=== PATIENT | female | born 1975 | race American Indian/Alaskan Native ===

== ENCOUNTER 2018-02-27 22:05 | Emergency (ER) | payer OTHER, SELFPAY ==
--- NOTE | 2018-02-27 22:10 | ED.ARRPALP ---
HPI - Arrhythmia/Palpitations General Chief Complaint: Arrhythmia/Palpitations Stated Complaint: STATES SVT Time Seen by Provider: 02/27/18 22:09 Source: patient Mode of arrival: ambulatory Limitations: no limitations History of Present Illness HPI narrative: 42-year-old female with history of SVT and pulmonary hypertension presents to the emergency department with a chief complaint of 45 min of rapid heart rate home with dizziness and lightheadedness. She has a long history of SVT and attempted multiple Valsalva maneuvers at home. Her symptoms persisted through her registration process and by the time she entered the emergency department her rate was normal and her symptoms had ceased. She does state that she drank a very strong quad coffee this afternoon which is atypical for her, stating she knows better MD complaint: rapid heart beat and heart racing Onset (ago): minute(s) Duration: now resolved Severity: mild Context: occurred during rest Arrhythmia history: SVT Associated symptoms: shortness of breath, anxiety and paresthesias Treatments prior to arrival: vagal maneuvers Related Data Home Medications Medication Instructions Recorded Confirmed OMEPRAZOLE 20 mg PO QDAY #0 04/30/13 FERROUS SULFATE 324 mg OR BID #0 05/01/16 VITAMIN D (Vitamin D3) 1,000 units OR Q DAY #0 05/01/16 ambrisentan [Letairis] 10 mg OR Q DAY #0 05/01/16 hydrochlorothiazide 25 mg OR Q DAY #0 05/01/16 minocycline 100 mg PO BID #0 cap 05/01/16 pregabalin [Lyrica] 150 mg PO BID #0 cap 05/01/16 tadalafil (antihypertensive) 40 mg OR Q DAY #0 05/01/16 [Adcirca] trazodone 100 mg OR HS #0 05/01/16 Previous Rx's Medication Instructions Recorded hydrocodone-acetaminophen [Elmira] 1 tab PO QID PRN #10 tab 01/28/17 ibuprofen 800 mg PO Q8HP PRN #30 tab 01/28/17 Allergies Allergy/AdvReac Type Severity Reaction Status Date / Time lisinopril Allergy Unknown Verified 02/27/18 22:13 sulfamethoxazole Allergy Unknown Verified 02/27/18 22:13 [From Bactrim] trimethoprim [From Bactrim] Allergy Unknown Verified 02/27/18 22:13 Review of Systems Review of Systems All systems reviewed & are unremarkable except as noted in HPI and below Constitutional Denies chills, Denies fever(s), Denies lethargy and Denies weakness Eyes Denies change in vision, Denies eye discharge, Denies irritation and Denies loss of vision ENT Ears, Nose, Mouth, and Throat: Denies change in voice, Denies neck pain and Denies sore throat Cardiovascular Denies chest pain, Reports rapid heart rate, Denies irregular heart rhythm, Denies lightheadedness, Denies palpitations, Denies dyspnea, Denies dyspnea on exertion and Denies orthopnea Respiratory Denies cough, Denies dyspnea, Denies dyspnea on exertion and Denies wheezing Gastrointestinal Gastrointestinal: Denies abdominal pain, Denies change in bowel habits, Denies diarrhea, Denies nausea and Denies vomiting Genitourinary Denies hematuria, Denies flank pain, Denies urinary incontinence and Denies urinary urgency Musculoskeletal Denies neck pain Integumentary/Breasts Denies pruritus, Denies erythema, Denies rash and Denies wounds Neurologic Denies confusion, Denies loss of vision and Denies weakness Psychiatric Denies anxiety, Denies confusion, Denies depression, Denies homicidal ideation and Denies suicidal ideation Endocrine Denies palpitations Hematologic/Lymphatic Denies easy bruising Allergic/Immunologic Denies wheezing PFSH Surgical History History of third molar tooth extraction History of tonsillectomy Status post tubal ligation Social History Smoking Status: Smoker, status unknown Exam Narrative Exam Narrative: Pleasant 42-year-old female resting comfortably. In no obvious distress Initial Vital Signs Initial Vital Signs: Vital Signs Temperature 97.7 F 02/27/18 22:13 Pulse Rate 81 02/27/18 22:13 Respiratory Rate 17 02/27/18 22:13 Blood Pressure 100/71 02/27/18 22:13 Pulse Oximetry 97 02/27/18 22:13 Const General: cooperative and well developed Nutritional Appearance: well nourished Orientation: alert, awake, oriented x3 and not confused [facility] Head: normocephalic and atraumatic Ears: external ears normal and TM's normal bilaterally Nose: external nose normal and No nasal discharge Face and sinus: sinuses nontender, face symmetric, no sinus tenderness and No dry mucous membranes Mouth: oral mucosae normal and moist mucous membranes Teeth and gingiva: dentition normal Throat: tonsils normal and uvula midline Eyes General: appearance normal, both eyes and all related structures Eyelids: eyelids normal Conjunctivae: conjunctivae normal Sclera: sclerae normal Pupils: PERRL EOM: EOM intact bilaterally Neck Neck: normal visual inspection, trachea midline, No lymphadenopathy, No midline deformity and No JVD Lymphatic: No lymphedema Chest Chest: normal inspection of the chest Resp Effort & Inspection: normal respiratory effort, able to speak in complete sentences, no respiratory distress and no use of accessory muscles Auscultation: clear to auscultation bilaterally, no rales, no rhonchi and no wheezes Cardio Rate: regular rate Rhythm: regular rhythm Heart Sounds: no click, no gallops, no murmurs and no rubs Pulses: normal peripheral pulses GI Inspection: non-distended Palpation: soft, no hepatosplenomegaly, No guarding, No pulsatile mass and No tender Auscultation: normal bowel sounds Back/Spine/Pelvis Back: No CVA tenderness Cervical Spine: cervical ROM normal and No pain with cervical ROM Thoracic/Lumbar Spine: thoracic and lumbar spine normal to inspection Skin General: no rashes or lesions noted, No jaundice and No petechiae Neuro General: alert, oriented x3, gait normal and no focal motor deficits Speech: speech normal Extrem General: full ROM, no clubbing, cyanosis or edema, no pedal edema and no calf tenderness Psych Appearance: well kempt Mental Status: mental status grossly normal Attitude: cooperative Thought Content: normal and suicidality Judgment: judgment good Course Orders Ordered: ED Orders 02/27/18 22:10 EKG-12 Lead Stat Reevaluation(s) Reevaluation #1: Patient has longstanding history of SVT and states today symptoms were very classic for her. She states she has a history of entering SVT when she has strong caffeinated beverages. She had resolved her rapid heart rate and all other symptoms prior to being evaluated. After discussion with this patient we elected to not draw labs or do other interventions at this time. She understands she can return to the emergency department immediately for any recurrence of symptoms Vital Signs - 8 hr 02/27/18 22:13 02/27/18 22:31 02/27/18 22:38 Temperature 97.7 F Pulse Rate 81 67 74 Respiratory Rate 17 16 18 Blood Pressure 100/71 106/57 L Blood Pressure [Left Arm] 106/57 L Pulse Oximetry 97 100 96 Discharge Plan Departure Patient Disposition: Home, Self-Care Clinical Impression: SVT (supraventricular tachycardia) Discharge Date/Time: 02/27/18 22:39 Interventions: ED Discharge Assessment Last Done: 02/27/18 22:38 Instructions: Paroxysmal Supraventricular Tachycardia Activity Restrictions/Additional Instructions: Avoid caffeine, nicotine and alcohol Return to the emergency department immediately for return of symptoms or additional symptoms such as chest pain, shortness of breath or dizziness Prescriptions: No Action OMEPRAZOLE 20 mg PO QDAY Qty: 0 RF: 0 tadalafil (antihypertensive) [Adcirca] 20 MG tablet 40 mg OR Q DAY Qty: 0 RF: 0 hydrochlorothiazide 25 MG tablet 25 mg OR Q DAY Qty: 0 RF: 0 trazodone 100 MG tablet 100 mg OR HS Qty: 0 RF: 0 FERROUS SULFATE 324 mg OR BID Qty: 0 RF: 0 ambrisentan [Letairis] 10 MG tablet 10 mg OR Q DAY Qty: 0 RF: 0 minocycline 100 MG capsule 100 mg PO BID Qty: 0 RF: 0 VITAMIN D (Vitamin D3) 1,000 units OR Q DAY Qty: 0 RF: 0 pregabalin [Lyrica] 75 MG capsule 150 mg PO BID Qty: 0 RF: 0 ibuprofen 800 MG tablet 800 mg PO Q8HP PRNQty: 30 RF: 0 hydrocodone-acetaminophen [Elmira] 5 MG/325 MG tablet 1 tab PO QID PRNQty: 10 RF: 0
[2018-02-27 22:13] VITALS: BP 100/71; PULSE 81; RESP 17; TEMP 36.5; O2SAT 97
[2018-02-27 22:31] VITALS: BP 106/57; PULSE 67; RESP 16; O2SAT 100
[2018-02-27 22:38] VITALS: BP 106/57; PULSE 74; RESP 18; O2SAT 96
== END 2018-02-27 22:39 | disposition home or self-care (01) ==
PROVIDERS: Emergency Provider Emergency Medicine; Family Provider Physician Assistant; PCP Physician Assistant
DX: I47.1 Supraventricular tachycardia (principal)
CPT/HCPCS: 93005; 93041; 99283

== ENCOUNTER 2018-06-19 22:13 | Emergency (ER) | payer OTHER, SELFPAY ==
[2018-06-19 22:15] VITALS: BP 134/76; PULSE 109; RESP 23; O2SAT 91; BMI 28.0
[2018-06-19 23:00] VITALS: BP 120/78; PULSE 106; RESP 24; O2SAT 93
[2018-06-19 23:02] LABS: Add Manual Diff / Slide Review NO; Basophils Percent Auto 0.6 % (0-2); Eosinophils Percent Auto 1.1 % (2-4); Hematocrit 40.6 % (36-46); Hemoglobin 13.9 g/dL (12.0-16.0); Lymphocytes Percent Auto 34.8 % (25-40); Mean Corpuscular HGB Conc 34.2 % (30-36); Mean Corpuscular Hemoglobin 29.6 PG (26-34); Mean Corpuscular Volume 86.5 fL (80-100); Monocytes Percent Auto 6.5 % (3-14); Neutrophils Absolute Auto 3800 /uL (3000-5900); Platelet Count 196 X10^3/uL (150-400); Red Blood Cell Count 4.69 X10^6/uL (4.0-5.2); Red Cell Distribution Width 15.5 % (11.6-14.8); White Blood Cell Count 6.7 X10^3/uL (4.5-11.0)
[2018-06-19 23:07] LABS: Alanine Aminotransferase 22 IU/L (9-52); Albumin 4.1 g/dL (3.5-5.0); Albumin Globulin Ratio 1.6 (1.0-2.8); Alkaline Phosphatase 45 U/L (38-126); Aspartate Aminotransferase 30 IU/L (14-36); Bilirubin Total 0.4 mg/dL (0.2-1.3); Blood Urea Nitrogen 15 mg/dL (7-17); Calcium 8.8 mg/dL (8.4-10.2); Carbon Dioxide 26 mmol/L (22-32); Chloride 102 mmol/L (98-107); Estimated Glomerular Filt Rate > 60.0 mL/min (>60); Ethanol (ETOH) 178 mg/dL; Globulin 2.6 g/dL (1.7-4.1); Glucose 149 mg/dL (70-100); HEMOLYSIS < 15 (0-50); Lipase 580 U/L (23-300); Magnesium 1.6 mg/dL (1.6-2.3); Potassium 3.7 mmol/L (3.4-5.1); Sodium 143 mmol/L (137-145); Total Protein 6.7 g/dL (6.3-8.2)
[2018-06-19] MEDS: THIAMINE 100 MG in DEXTROSE 5 % IN WATER 50 ML 204 ML IV (23:08)
[2018-06-19] MEDS: LORazepam 2 MG/ML SYRINGE 1 MG IV (23:08)
[2018-06-19] MEDS: SODIUM CHLORIDE 0.9% 1,000 ML 1000 ML IV (23:08)
--- NOTE | 2018-06-20 00:21 | ED_ITS ---
HPI - Arrhythmia/Palpitations General Chief Complaint: Arrhythmia/Palpitations Stated Complaint: SVT Time Seen by Provider: 06/19/18 22:18 Source: patient and family Mode of arrival: ambulatory Limitations: no limitations History of Present Illness HPI narrative: 42-year-old female with history of alcohol abuse and SVT presents with family members in the chief complaint of the sense that she soon ? drop in ?2 SVT. She denies chest pain, palpitations, dizziness or lightheadedness. She states she drinks about a pt a day and has been for the past 5 days and had been sober for approximately 5 months prior to that. She has been to medical detox facilities a few times and is requesting help with detox. She states she has never had seizures or any of the classic symptoms of delirium tremens such as tremors, confusion, hallucinations or other. She states she wants to stop drinking today MD complaint: rapid heart beat and heart racing Onset (ago): minute(s) Duration: now resolved Severity: mild Context: occurred during rest Arrhythmia history: SVT Associated symptoms: denies other symptoms Treatments prior to arrival: vagal maneuvers Related Data Home Medications Medication Instructions Recorded Confirmed OMEPRAZOLE 20 mg PO QDAY #0 04/30/13 04/06/18 FERROUS SULFATE 324 mg OR BID #0 05/01/16 04/06/18 VITAMIN D (Vitamin D3) 1,000 units OR Q DAY #0 05/01/16 04/06/18 ambrisentan [Letairis] 10 mg OR Q DAY #0 05/01/16 04/06/18 hydrochlorothiazide 25 mg OR Q DAY #0 05/01/16 04/06/18 minocycline 100 mg PO BID #0 cap 05/01/16 04/06/18 pregabalin [Lyrica] 150 mg PO BID #0 cap 05/01/16 04/06/18 tadalafil (antihypertensive) 40 mg OR Q DAY #0 05/01/16 04/06/18 [Adcirca] trazodone 100 mg OR HS #0 05/01/16 04/06/18 Previous Rx's Medication Instructions Recorded hydrocodone-acetaminophen [Birchleaf] 1 tab PO QID PRN #10 tab 01/28/17 ibuprofen 800 mg PO Q8HP PRN #30 tab 01/28/17 chlordiazepoxide HCl See Label Instructions .ROUTE 06/20/18 .COMPLEX #32 cap ondansetron [Zofran ODT] 8 mg PO Q8-12H PRN 4 Days tab 06/20/18 Allergies Allergy/AdvReac Type Severity Reaction Status Date / Time lisinopril Allergy Unknown Verified 06/19/18 22:15 sulfamethoxazole Allergy Unknown Verified 06/19/18 22:15 [From Bactrim] trimethoprim [From Bactrim] Allergy Unknown Verified 06/19/18 22:15 Review of Systems Review of Systems All systems reviewed & are unremarkable except as noted in HPI and below Constitutional Denies chills, Denies fever(s), Denies lethargy and Denies weakness Eyes Denies change in vision, Denies eye discharge, Denies irritation and Denies loss of vision ENT Ears, Nose, Mouth, and Throat: Denies change in voice, Denies neck pain and Denies sore throat Cardiovascular Denies chest pain, Denies irregular heart rhythm, Denies lightheadedness, Reports palpitations, Denies dyspnea, Denies dyspnea on exertion and Denies orthopnea Respiratory Denies cough, Denies dyspnea, Denies dyspnea on exertion and Denies wheezing Gastrointestinal Gastrointestinal: Denies abdominal pain, Denies change in bowel habits, Denies diarrhea, Denies nausea and Denies vomiting Genitourinary Denies hematuria, Denies flank pain, Denies urinary incontinence and Denies urinary urgency Musculoskeletal Denies neck pain Integumentary/Breasts Denies pruritus, Denies erythema, Denies rash and Denies wounds Neurologic Denies confusion, Denies loss of vision and Denies weakness Psychiatric Denies anxiety, Denies confusion, Denies depression, Denies homicidal ideation and Denies suicidal ideation Endocrine Reports palpitations Hematologic/Lymphatic Denies easy bruising Allergic/Immunologic Denies wheezing [facility] Surgical History History of third molar tooth extraction (Resolved) History of tonsillectomy (Resolved) Status post tubal ligation (Resolved 1998) Social History Smoking Status: Never smoker Exam Initial Vital Signs Initial Vital Signs: Vital Signs Pulse Rate 109 H 06/19/18 22:15 Respiratory Rate 23 06/19/18 22:15 Blood Pressure 134/76 06/19/18 22:15 Pulse Oximetry 91 06/19/18 22:15 Const General: cooperative, well developed and in distress Nutritional Appearance: well nourished Orientation: alert, awake, oriented x3 and not confused [facility] Head: normocephalic and atraumatic Ears: external ears normal and TM's normal bilaterally Nose: external nose normal and No nasal discharge Face and sinus: sinuses nontender, face symmetric, no sinus tenderness and No dry mucous membranes Mouth: oral mucosae normal and moist mucous membranes Teeth and gingiva: dentition normal Throat: tonsils normal and uvula midline Eyes General: appearance normal, both eyes and all related structures Eyelids: eyelids normal Conjunctivae: conjunctivae normal Sclera: sclerae normal Pupils: PERRL EOM: EOM intact bilaterally Neck Neck: normal visual inspection, trachea midline, No lymphadenopathy, No midline deformity and No JVD Lymphatic: No lymphedema Resp Effort & Inspection: normal respiratory effort, able to speak in complete sentences, no respiratory distress and no use of accessory muscles Auscultation: clear to auscultation bilaterally, no rales, no rhonchi and no wheezes Cardio Rate: regular rate Rhythm: regular rhythm Heart Sounds: no click, no gallops, no murmurs and no rubs Pulses: normal peripheral pulses GI Inspection: non-distended Palpation: soft, no hepatosplenomegaly, No guarding, No pulsatile mass and No tender Auscultation: normal bowel sounds Back/Spine/Pelvis Back: No CVA tenderness Cervical Spine: cervical ROM normal and No pain with cervical ROM Thoracic/Lumbar Spine: thoracic and lumbar spine normal to inspection Skin General: no rashes or lesions noted, No jaundice and No petechiae Neuro General: alert, oriented x3, gait normal and no focal motor deficits Speech: speech normal Course Course Narrative: [facility] for Alcohol Withdrawal from [employer] on 06/20/2018 All calculations should be rechecked by clinician prior to use RESULT SUMMARY: 2 points Patients with scores ?8 typically do not require medication for withdrawal. INPUTS: Nausea/vomiting ?> 1 = Mild nausea and no vomiting Tremor ?> 0 = No tremor Paroxysmal sweats ?> 0 = No sweat visible Anxiety ?> 1 = Mildly anxious Agitation ?> 0 = Normal activity Tactile disturbances ?> 0 = None Auditory disturbances ?> 0 = Not present Visual disturbances ?> 0 = Not present Headache/fullness in head ?> 0 = Not Present Orientation/clouding of sensorium ?> 0 = Oriented, can do serial additions Orders Ordered: ED Orders 06/19/18 22:16 Complete Blood Count AUTO DIFF Stat Comprehensive Metabolic Panel Stat Ethanol (ETOH) Stat Lipase Stat Magnesium Stat 06/19/18 22:48 Urine Drug Screen, Rapid Stat 06/20/18 02:04 CT LE RT wo con Stat Discontinued Medications Sodium Chloride (Normal Saline 0.9%) 1,000 mls @ 1,000 mls/hr IV BOLUS ONE Stop: 06/19/18 23:47 Last Infusion: 06/20/18 00:36 Dose: 0 mls/hr Admin: 06/19/18 23:08 Dose: 1,000 mls/hr Thiamine HCl 100 mg/ Dextrose 51 mls @ 204 mls/hr IV NOW ONE Stop: 06/19/18 22:49 Last Infusion: 06/20/18 00:35 Dose: 0 mls/hr Admin: 06/19/18 23:08 Dose: 204 mls/hr Ketorolac Tromethamine (Toradol) 15 mg IV NOW ONE Stop: 06/20/18 02:05 Last Admin: 06/20/18 02:19 Dose: Lorazepam (Ativan) 1 mg IV NOW ONE Stop: 06/19/18 22:49 Last Admin: 06/19/18 23:08 Dose: 1 mg Lorazepam (Ativan) 2 mg PO NOW ONE Stop: 06/20/18 02:17 Lorazepam (Ativan) 2 mg PO NOW ONE Stop: 06/20/18 02:29 Last Admin: 06/20/18 01:20 Dose: 2 mg Reevaluation(s) Reevaluation #1: Patient feels much better after above-stated therapies. She has no symptoms suggesting a progression of alcohol withdrawal. Vital Signs - 8 hr 06/19/18 22:15 06/19/18 23:00 06/20/18 00:45 Pulse Rate 109 H 106 H 100 H Respiratory Rate 23 24 Blood Pressure 134/76 Blood Pressure [Right Arm] 120/78 116/72 Pulse Oximetry 91 93 90 L 06/20/18 01:12 06/20/18 01:23 Pulse Rate 94 H 99 H Respiratory Rate 22 20 Blood Pressure 118/79 Blood Pressure [Right Arm] 118/79 Pulse Oximetry 92 93 MDM - Arrhythmia/Palpitations Lab Data Result diagrams: 06/19/18 22:16 06/19/18 22:16 Lab Results 06/19/18 06/19/18 Range/Units 22:16 22:16 WBC 6.7 (4.5-11.0) X10^3/uL RBC 4.69 (4.0-5.2) X10^6/uL Hgb 13.9 (12.0-16.0) g/dL Hct 40.6 (36-46) % MCV 86.5 (80-100) fL MCH 29.6 (26-34) PG MCHC 34.2 (30-36) % RDW 15.5 H (11.6-14.8) % Plt Count 196 (150-400) X10^3/uL Neut % (Auto) 57.0 (50-75) % Lymph % (Auto) 34.8 (25-40) % Robertson % (Auto) 6.5 (3-14) % Eos % (Auto) 1.1 L (2-4) % Baso % (Auto) 0.6 (0-2) % Neut # (Auto) 3800 (5329-8889) /uL Sodium 143 (137-145) mmol/L Potassium 3.7 (3.4-5.1) mmol/L Chloride 102 (98-107) mmol/L Carbon Dioxide 26 (22-32) mmol/L BUN 15 (7-17) mg/dL Creatinine 0.60 (0.52-1.04) mg/dL Estimated GFR > 60.0 (>60) mL/min BUN/Creatinine Ratio 25.0 H (6-22) Glucose 149 H (70-100) mg/dL Calcium 8.8 (8.4-10.2) mg/dL Magnesium 1.6 (1.6-2.3) mg/dL Total Bilirubin 0.4 (0.2-1.3) mg/dL AST 30 (14-36) IU/L ALT 22 (9-52) IU/L Alkaline Phosphatase 45 (38-126) U/L Total Protein 6.7 (6.3-8.2) g/dL Albumin 4.1 (3.5-5.0) g/dL Globulin 2.6 (1.7-4.1) g/dL Albumin/Globulin Ratio 1.6 (1.0-2.8) Lipase 580 H (23-300) U/L Ethyl Alcohol 178 mg/dL Discharge Plan Departure Patient Disposition: Home Clinical Impression: Alcohol abuse Discharge Date/Time: 06/20/18 01:23 Interventions: ED Discharge Assessment Last Done: 06/20/18 01:23 Instructions: Alcohol Use Disorder Activity Restrictions/Additional Instructions: *You have been diagnosed with [ alcohol abuse disorder, resolved SVT ] *What to do: *Take medications as directed *Follow up with your primary care provider in 2-3 days, call for an appointment. Let them know you were seen in the Emergency Department and that we ask that you be seen in follow up *Return to ER if you should have any new, worsening or concerning symptoms , such as Prescriptions: New chlordiazepoxide HCl 25 mg capsule See Label Instructions .ROUTE .COMPLEX Qty: 32 RF: 0 ondansetron [Zofran ODT] 4 mg tablet,disintegrating 8 mg PO Q8-12H PRN (Reason: nausea and vomiting) 4 Days RF: 0 No Action OMEPRAZOLE 20 mg PO QDAY Qty: 0 RF: 0 tadalafil (antihypertensive) [Adcirca] 20 MG tablet 40 mg OR Q DAY Qty: 0 RF: 0 hydrochlorothiazide 25 MG tablet 25 mg OR Q DAY Qty: 0 RF: 0 trazodone 100 MG tablet 100 mg OR HS Qty: 0 RF: 0 FERROUS SULFATE 324 mg OR BID Qty: 0 RF: 0 ambrisentan [Letairis] 10 MG tablet 10 mg OR Q DAY Qty: 0 RF: 0 minocycline 100 MG capsule 100 mg PO BID Qty: 0 RF: 0 VITAMIN D (Vitamin D3) 1,000 units OR Q DAY Qty: 0 RF: 0 pregabalin [Lyrica] 75 MG capsule 150 mg PO BID Qty: 0 RF: 0 ibuprofen 800 MG tablet 800 mg PO Q8HP PRNQty: 30 RF: 0 hydrocodone-acetaminophen [Birchleaf] 5 MG/325 MG tablet 1 tab PO QID PRNQty: 10 RF: 0 Stand Alone Forms: Work/School Restrictions
[2018-06-20 00:45] VITALS: BP 116/72; PULSE 100; O2SAT 90
[2018-06-20 01:12] VITALS: BP 118/79; PULSE 94; RESP 22; O2SAT 92
[2018-06-20] MEDS: LORazepam 0.5 MG TABLET 2 MG PO (01:20)
[2018-06-20 01:23] VITALS: BP 118/79; PULSE 99; RESP 20; O2SAT 93
== END 2018-06-20 01:23 | disposition home or self-care (01) ==
PROVIDERS: Emergency Provider Emergency Medicine
DX: F10.10 Alcohol abuse, uncomplicated (principal); R00.2 Palpitations
CPT/HCPCS: 36591; 80053; 80320; 83690; 83735; 85025; 93005; 96365; 96366; 96375; 99283; 99284; J2060